=== PATIENT | male | born 1955 | race Caucasian/White ===

== ENCOUNTER → 2017-04-02 | Outpatient (CLI) | payer OTHER ==
[~2017-04-02] MED LIST: AMBIEN10 M1 PO; ATENOLOL100 M1 PO; ATENOLOL50 MG PO; CELEBREX100 MG PO; CELEBREX200 MG PO; GABAPENTIN100 M2 PO; INDOCIN50 MG PO; KEFLEX500 MG PO; LEXAPRO5 MG PO; MEDROL DOSEPAK4 MG PO; MOBIC; MOTRIN800 MG PO; Nystatin Ointme30 GM PO; PERCOCET 325 MG1 TA7 PO; VICODIN 5/500 505 MG PO
== END ==
LOC: RAD 11:05
DX: R10.32 Left lower quadrant pain (principal); Z90.49 Acquired absence of other specified parts of digestive tract; Z96.642 Presence of left artificial hip joint

== ENCOUNTER → 2018-04-21 | Outpatient (CLI) | payer OTHER ==
[~2018-04-21] MED LIST changes: +LISINOPRIL5 MG PO; +MELATONIN1 MG PO
[2018-04-21 12:27] LABS: HEMATOCRIT 45.4 % (42.0-52.0); HEMOGLOBIN 16.1 g/dl (14.0-18.0)
[2018-04-21 12:50] VITALS: BP 130/77
[2018-04-21 13:05] VITALS: BP 120/73
== END | disposition home or self-care (01) ==
LOC: LAB 11:49
PROVIDERS: Family Medicine
DX: E83.110 Hereditary hemochromatosis (principal)

== ENCOUNTER → 2018-05-06 | Day surgery (SDC) | payer OTHER ==
[~2018-05-06] VITALS: Ht 180.3 cm; Wt 86.2 kg
--- NOTE | ~2018-05-06 | O ---
[place], [place] OPERATIVE NOTE NAME: THA VERDUZCO [facility] [id number] UNIT #: [id number] ROOM: DOCTOR: SUKHWINDER BELTRE MD BIRTHDATE: [birth year] DOS: 05/06/2018 PROCEDURE #1: INDICATION: A 62-year-old patient who presented with chief complaint of persistent left lower quadrant pain, dyspepsia, dysphagia, undergoing investigation. ALLERGIES: BIAXIN, Z-SACHA. FAMILY HISTORY: Noncontributory. PAST SURGICAL HISTORY: Renal tumor, total left hip prosthesis, and inguinal hernia. PAST MEDICAL HISTORY: Hemochromatosis, hepatitis C, spinal stenosis, systemic hypertension. SOCIAL HISTORY: Nonsmoker, nonalcohol consumer. PROCEDURE: Today's procedure part of investigation is panendoscopy and colonoscopy. PREMEDICATION: Propofol. SCOPE: Olympus forward-viewing gastroscope Q10 video. REPORT: After putting the patient in left lateral position and application of lubricant to the scope, the scope was introduced; thereafter, under direct visualization, advanced through the length of esophagus without difficulty. Benign distal esophageal stricture was identified. Gastric pouch was entered. Small hiatal hernia seen. Antral biopsy was obtained. Duodenal bulb, second and third part within normal limits. Scope was withdrawn. A balloon size 20 was introduced into gastric pouch size 20 was utilized. Distal esophagus was dilated. Air was suctioned out. The patient was extubated, tolerated the procedure well. IMPRESSION: Benign distal esophageal stricture, status post balloon dilation size 20. Small hiatal hernia, gastritis. Continue to PPI, Zegerid as ordered. Otherwise, we are going to proceed with colonoscopy. PROCEDURE #2: Colonoscopy for left lower quadrant unambiguous pain. INDICATIONS: Today's procedure part of investigation is colonoscopy plus polypectomy. PREMEDICATION: Propofol. SCOPE: Olympus forward-viewing colonoscope 10L video. [place], [place] OPERATIVE NOTE NAME: THA VERDUZCO [facility]: [id number] UNIT #: [id number] ROOM: DOCTOR: SUKHWINDER BELTRE MD BIRTHDATE: [birth year] REPORT: After putting the patient in left lateral position and application of lubricant to the rectal pouch and digital examination, scope was introduced. Thereafter, under direct visualization, I advanced through the length of colon without difficulty. Moderate diverticulosis of sigmoid colon was noticed. Base of the cecum explored, appendiceal orifice identified. Air was suctioned out. Rectal pouch. Small polyps x 2 sessile with piecemeal polypectomy removed. The patient extubated, tolerated the procedure well. IMPRESSION: Rectal pouch polyp, status post piecemeal polypectomy x 2, moderate diverticulosis as a cause of left lower quadrant pain. PLAN AND DISCUSSION: High fiber diet. ACTIVITY: Ad edna. FOLLOWUP: As outpatient. SUKHWINDER BELTRE MD CM:OPRECORD:OPERATIVE NOTE [id number] SUKHWINDER BELTRE MD 05/06/18 0923 interface
[2018-05-06 06:40] VITALS: BP 129/85
[2018-05-06 08:26] VITALS: BP 90/52
[2018-05-06 08:40] VITALS: BP 96/63
[2018-05-06 08:55] VITALS: BP 115/84
== END | disposition home or self-care (01) ==
LOC: SDC 05-04 08:00
DX: K62.1 Rectal polyp (principal); K29.50 Unspecified chronic gastritis without bleeding; K57.30 Diverticulosis of large intestine without perforation or abscess without bleeding; K44.9 Diaphragmatic hernia without obstruction or gangrene; K22.2 Esophageal obstruction; M19.90 Unspecified osteoarthritis, unspecified site; M06.9 Rheumatoid arthritis, unspecified; I10 Essential (primary) hypertension; Z88.1 Allergy status to other antibiotic agents; Z88.8 Allergy status to other drugs, medicaments and biological substances; Z98.890 Other specified postprocedural states; Z86.19 Personal history of other infectious and parasitic diseases; Z87.891 Personal history of nicotine dependence; Z96.642 Presence of left artificial hip joint; Z85.528 Personal history of other malignant neoplasm of kidney; Z79.899 Other long term (current) drug therapy; Z82.49 Family history of ischemic heart disease and other diseases of the circulatory system

== ENCOUNTER → 2019-05-04 | Outpatient (CLI) | payer OTHER ==
[2019-05-04 16:10] LABS: BASO % 0.5 % (0.0-1.0); EOS # 0.2 10*3/uL (0.0-0.4); EOS % 4.2 % (1.0-4.0); HEMATOCRIT 49.6 % (42.0-52.0); HEMOGLOBIN 16.4 g/dl (14.0-18.0); LYMPH # 1.5 10*3/uL (1.3-4.4); LYMPH % 25.4 % (27.0-41.0); MEAN CELL VOLUME 94.8 fl (80.0-94.0); MEAN CORPUSCULAR HGB 31.4 pg (27.0-31.0); MEAN CORPUSCULAR HGB CONC 33.1 g/dl (33.0-37.0); MEAN PLATELET VOLUME 10.9 fl (9.6-12.3); MONO # 0.7 10*3/uL (0.1-1.0); MONO % 11.3 % (3.0-9.0); NEUT # 3.3 10*3/uL (2.3-7.9); NEUT % 58.3 % (47.0-73.0); PLATELET COUNT AUTOMATED 228 10*3/uL (130-400); RED BLOOD COUNT 5.23 10*6/uL (4.50-5.90); RED CELL DISTRI WIDTH 12.5 % (0-14.5); WHITE BLOOD COUNT 5.7 10*3/uL (4.8-10.8)
[2019-05-04 16:42] LABS: ALKALINE PHOSPHATASE 68 U/L (45-117); BUN 9 mg/dl (7-24); CHLORIDE 109 mmol/L (98-107); CHOLESTEROL 171 mg/dL (<200); CREATININE 1.11 mg/dL (0.70-1.30); HDL CHOLESTEROL 39 mg/dl (40-60); IRON 192 ug/dL (65-175); LDL CHOLESTEROL 86 mg/dL (9-159); POTASSIUM 4.3 mmol/L (3.5-5.1); SGOT/AST 8 IU/L (3-35); SGPT/ALT 17 U/L (12-78); SODIUM 143 mmol/L (136-145); TOTAL IRON BINDING CAPACITY 202 ug/dl (250-450); TOTAL PROTEIN 7.2 gm/dL (6.4-8.2); TRIGLYCERIDES 230 mg/dl (<150); VLDL CHOLESTEROL 46 mg/dL (6-40)
== END | disposition home or self-care (01) ==
LOC: LAB 15:29
PROVIDERS: Family Medicine
DX: I10 Essential (primary) hypertension (principal); K29.50 Unspecified chronic gastritis without bleeding; E83.110 Hereditary hemochromatosis

== ENCOUNTER → 2019-05-14 | Outpatient (CLI) | payer OTHER | END | disposition home or self-care (01) | LOC: CT 00:13 | DX: K40.90 Unilateral inguinal hernia, without obstruction or gangrene, not specified as recurrent (principal); K57.90 Diverticulosis of intestine, part unspecified, without perforation or abscess without bleeding; M47.895 Other spondylosis, thoracolumbar region; R18.8 Other ascites; I70.0 Atherosclerosis of aorta ==

== ENCOUNTER → 2020-01-28 | Outpatient (CLI) | payer OTHER ==
[2020-01-28 15:01] LABS: HEMATOCRIT 47.8 % (42.0-52.0); MEAN CELL VOLUME 92.8 fl (80.0-94.0); MEAN CORPUSCULAR HGB 31.3 pg (27.0-31.0); MEAN CORPUSCULAR HGB CONC 33.7 g/dl (33.0-37.0); RED BLOOD COUNT 5.15 10*6/uL (4.50-5.90); RED CELL DISTRI WIDTH 12.4 % (0-14.5); WHITE BLOOD COUNT 6.9 10*3/uL (4.8-10.8)
[2020-01-28 15:26] LABS: IRON 182 ug/dL (65-175); TOTAL IRON BINDING CAPACITY 174 ug/dl (250-450)
== END | disposition home or self-care (01) ==
LOC: LAB 14:01
PROVIDERS: ATTEND Physician Assistant
DX: M48.00 Spinal stenosis, site unspecified (principal); D64.9 Anemia, unspecified

== ENCOUNTER → 2020-07-14 | Outpatient (CLI) | payer OTHER ==
[2020-07-14 14:33] LABS: HEMATOCRIT 47.2 % (42.0-52.0); MEAN CELL VOLUME 93.7 fl (80.0-94.0); MEAN CORPUSCULAR HGB 32.1 pg (27.0-31.0); MEAN CORPUSCULAR HGB CONC 34.3 g/dl (33.0-37.0); MEAN PLATELET VOLUME 10.8 fl (9.6-12.3); RED BLOOD COUNT 5.04 10*6/uL (4.50-5.90); RED CELL DISTRI WIDTH 12.4 % (0-14.5); WHITE BLOOD COUNT 7.8 10*3/uL (4.8-10.8)
[2020-07-14 14:51] LABS: ALBUMIN 3.9 gm/dl (3.1-4.5); ALKALINE PHOSPHATASE 72 U/L (45-117); BUN 15 mg/dl (7-24); CHLORIDE 106 mmol/L (98-107); CHOLESTEROL 179 mg/dL (<200); CREATININE 1.03 mg/dL (0.70-1.30); HDL CHOLESTEROL 36 mg/dl (40-60); LDL CHOLESTEROL 74 mg/dL (9-159); POTASSIUM 4.7 mmol/L (3.5-5.1); SGOT/AST 13 IU/L (3-35); SGPT/ALT 18 U/L (12-78); SODIUM 140 mmol/L (136-145); TOTAL PROTEIN 7.1 gm/dL (6.4-8.2); TRIGLYCERIDES 346 mg/dl (<150); VLDL CHOLESTEROL 69 mg/dL (6-40)
== END | disposition home or self-care (01) ==
LOC: LAB 13:53
PROVIDERS: ATTEND Physician Assistant
DX: I10 Essential (primary) hypertension (principal); E83.110 Hereditary hemochromatosis; M48.00 Spinal stenosis, site unspecified; F51.01 Primary insomnia; E78.2 Mixed hyperlipidemia; R13.10 Dysphagia, unspecified

== ENCOUNTER 2020-09-07 04:38 | Emergency (ER) | payer OTHER ==
[~2020-09-07] VITALS: Ht 180.3 cm; Wt 83.9 kg
[2020-09-07 07:30] VITALS: BP 163/90
[2020-09-07] MEDS ORDERED: MEDROL DOSEPAK4 MG PO (07:42)
== END 2020-09-07 07:43 | disposition home or self-care (01) ==
LOC: ED 04:38
DX: M48.02 Spinal stenosis, cervical region (principal); Z98.890 Other specified postprocedural states; Z79.899 Other long term (current) drug therapy; Z88.1 Allergy status to other antibiotic agents; Z88.5 Allergy status to narcotic agent

== ENCOUNTER → 2021-12-24 | Outpatient (CLI) | payer OTHER | END | disposition home or self-care (01) | LOC: LAB 13:00 | PROVIDERS: ATTEND Internal Medicine Gastroenterology | DX: E83.110 Hereditary hemochromatosis (principal) ==

== ENCOUNTER → 2022-01-08 | Outpatient (CLI) | payer OTHER | END | disposition home or self-care (01) | LOC: US 02:08 | PROVIDERS: ATTEND Physician Assistant | DX: E83.110 Hereditary hemochromatosis (principal) ==

== ENCOUNTER → 2022-01-21 | Outpatient (CLI) | payer OTHER ==
[2022-01-21 14:30] LABS: BASO % 0.5 % (0.0-1.0); EOS # 0.2 10*3/uL (0.0-0.4); EOS % 3.8 % (1.0-4.0); HEMATOCRIT 48.1 % (42.0-52.0); LYMPH # 1.6 10*3/uL (1.3-4.4); LYMPH % 27.4 % (27.0-41.0); MEAN CELL VOLUME 94.7 fl (80.0-94.0); MEAN CORPUSCULAR HGB 32.7 pg (27.0-31.0); MEAN CORPUSCULAR HGB CONC 34.5 g/dl (33.0-37.0); MEAN PLATELET VOLUME 10.8 fl (9.6-12.3); MONO # 0.8 10*3/uL (0.1-1.0); NEUT # 3.2 10*3/uL (2.3-7.9); PLATELET COUNT AUTOMATED 208 10*3/uL (130-400); RED BLOOD COUNT 5.08 10*6/uL (4.50-5.90); RED CELL DISTRI WIDTH 12.1 % (0-14.5); WHITE BLOOD COUNT 5.8 10*3/uL (4.8-10.8)
[2022-01-21 14:59] LABS: ALKALINE PHOSPHATASE 66 U/L (45-117); BUN 15 mg/dl (7-24); CHLORIDE 108 mmol/L (98-107); POTASSIUM 4.6 mmol/L (3.5-5.1); SGOT/AST 8 IU/L (3-35); SGPT/ALT 15 U/L (12-78); SODIUM 143 mmol/L (136-145)
[2022-01-21 15:36] LABS: FERRITIN 193.4 ng/mL (22.0-322.0)
[2022-01-27 13:04] LABS: METHYLMALONIC ACID 173 nmol/L (0-378)
== END | disposition home or self-care (01) ==
LOC: LAB 13:59
PROVIDERS: ATTEND Internal Medicine Hematology & Oncology
DX: E83.119 Hemochromatosis, unspecified (principal)

== ENCOUNTER 2022-05-29 06:47 | Emergency (ER) | payer OTHER ==
[~2022-05-29] VITALS: Ht 180.3 cm; Wt 82.1 kg
[2022-05-29 06:59] VITALS: BP 147/81
[2022-05-29] MEDS ORDERED: PREDNISONE10 MG PO (07:16)
[2022-05-29] MEDS ORDERED: CYCLOBENZAPRINE10 MG PO (07:16)
== END 2022-05-29 07:45 | disposition home or self-care (01) ==
LOC: ED 06:47
DX: S46.911A Strain of unspecified muscle, fascia and tendon at shoulder and upper arm level, right arm, initial encounter (principal); Z88.1 Allergy status to other antibiotic agents; Z88.8 Allergy status to other drugs, medicaments and biological substances; Z79.899 Other long term (current) drug therapy; Z98.890 Other specified postprocedural states; X58.XXXA Exposure to other specified factors, initial encounter; Y93.89 Activity, other specified; Y92.89 Other specified places as the place of occurrence of the external cause; Y99.8 Other external cause status

== ENCOUNTER → 2023-01-17 | Outpatient (CLI) | payer OTHER ==
[~2023-01-17] MED LIST changes: +CYCLOBENZAPRINE10 MG PO; +PREDNISONE10 MG PO
== END | disposition home or self-care (01) ==
LOC: CT 00:31
PROVIDERS: ATTEND Physician Assistant
DX: I71.21 Aneurysm of the ascending aorta, without rupture (principal)

== ENCOUNTER 2023-09-09 08:35 | Emergency (ER) | payer MEDICARE ==
[~2023-09-09] VITALS: Ht 182.8 cm; Wt 83.9 kg
[~2023-09-09 08:35] MED LIST changes: +OMEPRAZOLE MAGN20 MG PO
[2023-09-09] MEDS ORDERED: SODIUM CHLORIDE 0.9% 1,000 ML IV ONE (09:45)
[2023-09-09] MEDS ORDERED: IOHEXOL 300 MG/ML 100 ML VIAL IV ONE (09:55)
[2023-09-09 10:02] LABS: HEMATOCRIT 47.7 % (42.0-52.0); MEAN CELL VOLUME 95.4 fl (80.0-94.0); MEAN CORPUSCULAR HGB 32.2 pg (27.0-31.0); MEAN CORPUSCULAR HGB CONC 33.8 g/dl (33.0-37.0); MEAN PLATELET VOLUME 10.1 fl (9.6-12.3); PLATELET COUNT AUTOMATED 242 10*3/uL (130-400); RED CELL DISTRI WIDTH 13.1 % (0-14.5); WHITE BLOOD COUNT 11.3 10*3/uL (4.8-10.8)
[2023-09-09 10:04] LABS: MANUAL DIFF REFLEX YES
[2023-09-09 10:20] LABS: ALKALINE PHOSPHATASE 136 U/L (46-116); BUN 7 mg/dl (9-23); CHLORIDE 101 mmol/L (98-107); LIPASE 138 U/L (12-53); POTASSIUM 4.4 mmol/L (3.4-5.1); SGPT/ALT 49 U/L (5-49); TOTAL PROTEIN 6.7 gm/dL (6.0-8.0)
[2023-09-09 10:21] LABS: BASOPHILS 1 % (0-1); BURR CELLS MODERATE; PLATELET SUFFICIENCY NORMAL (NORMAL); POLYCHROMASIA SLIGHT; TOTAL CELLS COUNTED 100 #CELLS; VACUOLATION OF NEUTROPHILS SLIGHT
[2023-09-09 10:47] LABS: BILIRUBIN 1+ (Negative); BLOOD Negative (Negative); CLARITY Clear (Clear); COLOR Dark Yellow (Yellow); GLUCOSE Negative (Negative); KETONE Negative (Negative); LEUKO ESTERASE Negative (Negative); NITRITE Negative (Negative); SPECIFIC GRAVITY 1.015 (1.001-1.030)
[2023-09-09 17:29] VITALS: BP 134/70
== END 2023-09-09 22:54 | disposition short-term general hospital (02) ==
LOC: ED 08:35
PROVIDERS: Internal Medicine
DX: K83.8 Other specified diseases of biliary tract (principal); R11.2 Nausea with vomiting, unspecified; Z88.4 Allergy status to anesthetic agent; Z88.6 Allergy status to analgesic agent; Z79.891 Long term (current) use of opiate analgesic; Z96.642 Presence of left artificial hip joint; Z98.890 Other specified postprocedural states